=== PATIENT | female | born 1980 | race Caucasian/White ===

== ENCOUNTER 2021-11-08 10:28 | Outpatient (CLI) | payer BC | END 2021-11-08 10:29 | disposition home or self-care (01) | LOC: BICULT 10:28 | PROVIDERS: ATTEND Obstetrics & Gynecology | DX: N63.20 Unspecified lump in the left breast, unspecified quadrant (principal) | CPT/HCPCS: G0279 ==

== ENCOUNTER 2023-09-20 14:19 | Outpatient (CLI) | payer BC | END 2023-09-20 14:20 | disposition home or self-care (01) | LOC: ULT 14:19 | PROVIDERS: ATTEND Nurse Practitioner Family | DX: N92.6 Irregular menstruation, unspecified (principal); R10.2 Pelvic and perineal pain; D25.9 Leiomyoma of uterus, unspecified | CPT/HCPCS: 76856 ==

== ENCOUNTER 2023-09-27 14:11 | Outpatient (CLI) | payer BC | END 2023-09-27 14:12 | disposition home or self-care (01) | LOC: ULT 14:11 | PROVIDERS: ATTEND Physician Assistant Medical | DX: R74.8 Abnormal levels of other serum enzymes (principal); R10.84 Generalized abdominal pain | CPT/HCPCS: 76705 ==